=== PATIENT | male | born 2005 | race Hispanic/Latino ===

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

== ENCOUNTER 2023-01-09 08:21 | Emergency (ER) | payer SELFPAY ==
[~2023-01-09] VITALS: Ht 167.6 cm; Wt 59.0 kg
[2023-01-09 08:44] VITALS: O2SAT 100
[2023-01-09] MEDS ORDERED: AMOX TR-K CLV1 EAC2 PO (08:53)
== END 2023-01-09 10:24 | disposition home or self-care (01) ==
LOC: ER 08:41
DX: J02.0 Streptococcal pharyngitis (principal)
CPT/HCPCS: 99283